=== PATIENT | male | born 1925 | race Caucasian/White ===

== ENCOUNTER 2016-08-27 09:48 | Emergency (ER) | payer OTHER, MEDICAID ==
[2016-08-27 11:07] VITALS: BP 139/67
--- NOTE | 2016-08-27 11:19 | UC ---
Lower Extremity/Ankle HPI - HPI Summary HPI Summary: 89 year old male with complaints left ankle pain and swelling. Pt reports pain intermittently for 2 months over the last several days the pain has become worse. Denies calf pain, fever, chest pain or cough. Denies injury. reports a fall 2 weeks ago but the patient does not feel this is related. Denies fever, chills. He is able to partially weight bear with his walker. 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 - and daughter Onset/Duration: Gradual Onset, Lasting Weeks - 8, Worse Since - over last several days Severity Initially: Mild Severity Currently: Moderate Pain Scale Used: 0-10 Numeric - 8 Aggravating Factor(s): Standing, Ambulation Alleviating Factor(s): Rest, Elevation Able to Bear Weight: Yes - with his walker - Risk Factors Gout Risk Factors: Age Over 40, Male Septic Arthritis Risk Factor: Negative - Allergies/Home Medications Allergies/Adverse Reactions: Allergies Allergy/AdvReac Type Severity Reaction Status Date / Time Topiramate [From Topamax] Allergy Severe FACE FEELS Verified 08/27/16 10:54 NUMB Meperidine [From Demerol HCl] Allergy Intermediate INCREASE Verified 08/27/16 10 :54 PAIN LEVEL Diazepam [From Valium] AdvReac Severe MADE HIM Verified 08/27/16 10:54 UNAWARE OF SURROUNDINGS Home Medications: Home Medications Oxycodone HCl [Oxycodone HCl 5 mg/5 ml] 5 mg PO PRN 08/27/16 [History] PMH/Surg Hx/FS Hx/Imm Hx Previously Healthy: Yes Endocrine History Of: Denies: Diabetes Cardiovascular History Of: Reports: Hypertension - HX OF Respiratory History Of: Denies: Asthma Psychological History Of: Reports: Depression - CONTROL WITH MEDS Denies: Anxiety - Surgical History Surgical History: Yes Surgery Procedure, Year, and Place: 1968 LAMINECTOMY,. 1972 DORSAL COLUMN STIMULATOR/WITH SEVERAL REPLACEMENT, LAST BATTER CHANGE 3 MONTHS AGO. RIGHT INGUINAL HERNIA REPAIR. BILATERAL CATARACT EXTRACTION WITH IOL IMPLANTS. TONSILLECTOMY. 2003 PROSTATE SURGERY. 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, [facility] – [place] - Family History Known Family History: Positive: Hypertension Negative: Diabetes - Social History Lives: With Family - Alcohol Use: None Substance Use Type: None Smoking Status (MU): Former Smoker Type: Pipe Amount Used/How Often: SMOKED A PIPE / QUIT 30 YEARS AGO (1990) Have You Smoked in the Last Year: No When Did the Patient Quit Smoking/Using Tobacco: APPROX 1990 - Immunization History Most Recent Influenza Vaccination: fall 2013 Most Recent Tetanus Shot: unk Most Recent Pneumonia Vaccination: within las 5 years Review of Systems Constitutional: Negative Skin: Negative Eyes: Negative ENT: Negative Respiratory: Negative Cardiovascular: Negative Gastrointestinal: Negative Genitourinary: Negative Motor: Decreased ROM - left ankle Musculoskeletal: Arthralgia - left ankle Neurological: Negative Psychological: Negative All Other Systems Reviewed And Are Negative: Yes Physical Exam Triage Information Reviewed: Yes Appearance: Well-Appearing, Well-Nourished, Pain Distress - resting in wheelchair Vital Signs: Initial Vital Signs Temp 98.2 F 08/27/16 10:34 Pulse 70 08/27/16 10:34 Resp 16 08/27/16 10:34 BP 139/67 08/27/16 10:34 Pulse Ox 100 08/27/16 10:34 Vital Signs Reviewed: Yes Eyes: Positive: Conjunctiva Clear. Negative: Discharge ENT: Positive: Hearing grossly normal. Negative: Nasal congestion, Nasal drainage Neck: Positive: Supple, Nontender Respiratory: Positive: Lungs clear, Normal breath sounds. Negative: Crackles, Wheezing Cardiovascular: Positive: RRR, No Murmur Musculoskeletal: Positive: ROM Intact - passive to left ankle, Strength Limited @ - unalbe to bear full weight due to pain, Edema @ - 1+ pitting edema to left foot and ankle. Good pedal pulse. There is no redness, or warmth with palpation. Negative homans sign. Neurological: Positive: Alert, Muscle Tone Normal Psychological: Positive: Age Appropriate Behavior - pleasant and cooperative Skin: Negative: rashes, breakdown Lower Extremity Course/Dx - Course Course Of Treatment: Left ankle xray - no fracture - Differential Dx/Diagnosis Differential Diagnosis/HQI/PQRI: Arthritis, Contusion, Gout Provider Diagnoses: Left ankle pain and swelling Discharge - Discharge Plan Condition: Stable Disposition: HOME Patient Education Materials: [facility] (ED) Referrals: Eduin Mckeon DO [Primary Care Provider] - 5 Days (for recheck)
[2016-08-27] MEDS ORDERED: Acetaminophen TAB* 325 MG PO ONE (11:28)
--- NOTE | 2016-08-27 12:47 | RAD ---
INDICATION: Left ankle pain and swelling COMPARISON: None. TECHNIQUE: 3 views of the left ankle were obtained. FINDINGS: The well corticated bones exhibit normal alignment. Joint spaces appear maintained. No fracture is seen. IMPRESSION: Normal ankle radiograph. If the patient's symptoms persist, follow-up imaging is recommended.
== END 2016-08-27 12:37 | disposition home or self-care (01) ==
LOC: UCCORT 09:48
DX: M25.572 Pain in left ankle and joints of left foot (principal); M25.472 Effusion, left ankle; F33.8 Other recurrent depressive disorders; I10 Essential (primary) hypertension; Z87.891 Personal history of nicotine dependence; Z88.5 Allergy status to narcotic agent; Z88.8 Allergy status to other drugs, medicaments and biological substances; Z96.651 Presence of right artificial knee joint
CPT/HCPCS: 99212; A9270-GY; G0463